=== PATIENT | male | born 1990 | race Caucasian/White ===

== ENCOUNTER 2016-10-08 15:13 | Emergency (ER) | payer BC ==
[~2016-10-08] VITALS: Ht 193 cm; Wt 81.6 kg
[2016-10-08 15:21] VITALS: BP 107/59
--- NOTE | 2016-10-08 15:30 | NUR ---
PT STATES LEFT HAND LACERATION FOR ONE WEEK . DENIES N/V/D; SKIN IS PINK/WARM/DRY; AAOX4 WITH EVEN AND STEADY GAIT; LUNGS CLEAR BL; HR EVEN AND REGULAR; PT DENIES ANY FEVER, CP, SOB, OR COUGH AT THIS TIME; PATIENT STATES PAIN OF 4/10 AT THIS TIME; VSS; PATIENT POSITIONED FOR COMFORT; HOB ELEVATED; BEDRAILS UP X2; BED DOWN. ER MD MADE AWARE OF PT STATUS.
[2016-10-08] MEDS ORDERED: KETOROLAC 30 MG/ML VIAL ONE (16:00)
[2016-10-08] MEDS ORDERED: NACL 0.9% 1,000 ML IV ONE ×3 (16:05)
[2016-10-08] MEDS ORDERED: KETOROLAC 30 MG/ML VIAL IVP ONE (16:05)
[2016-10-08] MEDS ORDERED: LIDOCAINE 1% 500 MG/50 ML VIAL INJ ONE (16:40)
[2016-10-08] MEDS ORDERED: BACITRACIN OINT 500 UNITS/GM PKT TP ONE (17:05)
[2016-10-08 17:37] VITALS: BP 119/69
--- NOTE | 2016-10-08 17:37 | NUR ---
Patient discharged with v/s stable. Written and verbal after care instructions given and explained. Patient alert, oriented and verbalized understanding of instructions. Ambulatory with steady gait,ACCOMPANIED BY MOTHER. All questions addressed prior to discharge. ID band removed. Patient advised to follow up with PMD. Rx of BACTRIM,TRAMADOL, MOTRIN given. Patient educated on indication of medication including possible reaction and side effects. Opportunity to ask questions provided and answered.
== END 2016-10-08 17:37 | disposition home or self-care (01) ==
LOC: MED 15:13
DX: S61.412A Laceration without foreign body of left hand, initial encounter (principal); W25.XXXA Contact with sharp glass, initial encounter; Y93.89 Activity, other specified; Y92.89 Other specified places as the place of occurrence of the external cause; Y99.8 Other external cause status
CPT/HCPCS: 12001; 36415; 73130; 80053; 82948; 85025; 85610; 85730; 96361; 96374; 99285; J1885; J2001; J7030; Q0092